=== PATIENT | female | born 1940 | race Caucasian/White ===

== ENCOUNTER → 2017-03-06 | Outpatient (CLI) | payer MEDICARE, BC, OTHER ==
[~2017-03-06] MED LIST: CARB15DR EACHEYE; CITA20TA5 PO; CLOT15CR6 TD; CYCL5.5D EACHEYE; EZET1TAB35 PO
[2017-03-06 13:58] LABS: HEMATOCRIT 46.3 % (34.6-47.8); HEMOGLOBIN 15.5 g/dL (11.7-16.4); WHITE BLOOD COUNT 7.8 x10^3/uL (3.4-10)
[2017-03-06 14:07] LABS: BLOOD UREA NITROGEN 18 mg/dL (7-18)
[2017-03-06 14:11] LABS: ASPARTATE AMINO TRANSFERASE 15 U/L (15-37)
== END | disposition home or self-care (01) ==
LOC: STAR 12:16
PROVIDERS: ATTEND Neurological Surgery
DX: Z01.818 Encounter for other preprocedural examination (principal); I10 Essential (primary) hypertension; R79.1 Abnormal coagulation profile; R82.79 Other abnormal findings on microbiological examination of urine; Z87.891 Personal history of nicotine dependence
CPT/HCPCS: 36415; 71020; 80053; 81001; 85025; 85610; 85730; 87086; 93005

== ENCOUNTER 2017-03-12 05:17 | Inpatient (IN) | payer MEDICARE, BC, OTHER ==
[2017-03-06 13:03] VITALS: BP 154/89
[~2017-03-12] VITALS: Ht 149.9 cm; Wt 66.8 kg
[2017-03-12] MEDS ORDERED: LACTATED RINGERS 1,000 ML IV SCH (06:01)
[2017-03-12] MEDS ORDERED: LIDOCAINE 1%, 2ML SQ PRN (06:30)
[2017-03-12] MEDS ORDERED: BUPIVACAINE/PF 0.5% ONE (06:34)
[2017-03-12] MEDS ORDERED: THROMBIN 5,000 UNIT VIAL TP ONE (06:34)
[2017-03-12] MEDS ORDERED: EPINEPHRINE 1 MG/ML, 1ML ONE (06:35)
[2017-03-12] MEDS ORDERED: BACITRACIN 50,000 UNIT ONE (06:35)
[2017-03-12] MEDS ORDERED: FENTANYL PF 100 MCG/2ML ONE ×2 (06:56)
[2017-03-12] MEDS ORDERED: MIDAZOLAM 1 MG/ML, 2ML ONE (06:56)
[2017-03-12] MEDS ORDERED: PROPOFOL 10 MG/ML, 20ML ONE (06:58)
[2017-03-12] MEDS ORDERED: PROPOFOL 10 MG/ML, 50ML ONE (06:58)
[2017-03-12] MEDS ORDERED: ROCURONIUM 10 MG/ML ONE (06:58)
[2017-03-12] MEDS ORDERED: CEFAZOLIN 1,000 MG ONE (06:58)
[2017-03-12] MEDS ORDERED: ONDANSETRON 2MG/ML, 2ML ONE (06:58)
[2017-03-12] MEDS ORDERED: SUCCINYLCHOLINE 20 MG/ML, 10ML ONE (06:58)
[2017-03-12] MEDS ORDERED: DEXAMETHASONE 4 MG/ML, 1ML ONE (06:58)
[2017-03-12] MEDS ORDERED: LABETALOL 5MG/ML, 20ML IV PRN (08:00)
[2017-03-12] MEDS ORDERED: ONDANSETRON 2MG/ML, 2ML IVPush PRN ×2 (08:00→09:30)
[2017-03-12] MEDS ORDERED: HYDROmorphone 1 MG/ML, 1ML IV PRN (08:00)
[2017-03-12] MEDS ORDERED: MIDAZOLAM 1 MG/ML, 2ML IV PRN (08:00)
[2017-03-12] MEDS ORDERED: PROMETHAZINE 25 MG/ML, 1ML IV PRN (08:00)
[2017-03-12] MEDS ORDERED: MEPERIDINE/PF 25MG/0.5ML IVPush PRN (08:00)
[2017-03-12] MEDS ORDERED: hydrALAzine 20 MG/ML, 1ML IV PRN (08:00)
[2017-03-12] MEDS ORDERED: FENTANYL PF 100 MCG/2ML IV PRN (08:00)
[2017-03-12] MEDS ORDERED: OXYcodone 5 MG/5 ML ORAL.SOL UDC PO PRN (08:00)
[2017-03-12] MEDS ORDERED: DIAZEPAM 5 MG/ML, 2ML IVPush PRN (08:00)
[2017-03-12] MEDS ORDERED: ACETAMINOPHEN 325 MG TABLET PO PRN (08:00)
[2017-03-12] MEDS ORDERED: ALBUTEROL/IPRATROPIUM 2.5MG/0.5MG, 3 ML NPPB PRN (08:00)
[2017-03-12] MEDS ORDERED: DIPHENHYDRAMINE 50 MG/ML, 1ML IVPush PRN (09:30)
[2017-03-12] MEDS ORDERED: PHARMACY MAY ADJ FOR RENAL FX MC PRN (09:30)
[2017-03-12] MEDS ORDERED: HYDROmorphone 1 MG/ML, 1ML IVPush PRN (09:30)
[2017-03-12] MEDS ORDERED: D5%-0.9% NACL+KCL 20MEQ 1,000 ML IV SCH (09:30)
[2017-03-12] MEDS ORDERED: DIPHENHYDRAMINE 50 MG/ML, 1ML IM PRN (09:30)
[2017-03-12] MEDS ORDERED: OXYcodone/APAP 5/325MG TABLET PO PRN (09:30)
[2017-03-12] MEDS ORDERED: CYCLOBENZAPRINE 10 MG TABLET PO PRN (09:30)
[2017-03-12] MEDS ORDERED: ARTIFICIAL TEARS OPHTH SOLN 15ML EACHEYE PRN ×2 (09:30→18:17)
[2017-03-12] MEDS ORDERED: HYDROcodone/APAP 5/325 TABLET PO PRN (09:30)
[2017-03-12] MEDS ORDERED: LABETALOL 5MG/ML, 20ML IVPush PRN (09:30)
[2017-03-12] MEDS ORDERED: MAGNESIUM HYDROXIDE 8%, 30ML UDC PO PRN (09:30)
[2017-03-12] MEDS ORDERED: SENNA/DOCUSATE TABLET PO PRN (09:30)
[2017-03-12] MEDS ORDERED: PROMETHAZINE 25 MG/ML, 1ML IM PRN (09:30)
[2017-03-12] MEDS ORDERED: DIPHENHYDRAMINE 50 MG CAPSULE PO PRN (09:30)
[2017-03-12] MEDS ORDERED: CLINDAMYCIN PMX 600MG/50ML 50 ML IV ONE (09:30)
[2017-03-12] MEDS ORDERED: BISACODYL 10 MG SUPP PR PRN (09:30)
[2017-03-12] MEDS ORDERED: ACETAMINOPHEN 650 MG/20.3 ML UDC ONE (09:32)
[2017-03-12] MEDS ORDERED: OXYcodone 5 MG/5 ML ORAL.SOL UDC ONE (09:32)
[2017-03-12] MEDS ORDERED: hydrALAzine 20 MG/ML, 1ML ONE (10:24)
[2017-03-12] MEDS ORDERED: HYDROmorphone 1 MG/ML, 1ML ONE (10:36)
[2017-03-12 20:01] VITALS: BP 147/78
[2017-03-12] MEDS ORDERED: EZETIMIBE 10 MG TABLET PO SCH ×3 (21:00→21:12)
[2017-03-12] MEDS: CLOTRIM/BETAMETH 1%/0.05% CRM EXT SCH (21:00)
[2017-03-12] MEDS ORDERED: SIMVASTATIN 40 MG TABLET PO SCH (21:00)
[2017-03-12] MEDS: CYCLOSPORINE EACHEYE SCH (21:00)
[2017-03-12] MEDS: SODIUM CHLORIDE FLUSH 10ML SYR IVF SCH (21:16)
[2017-03-12 23:22] VITALS: BP 135/74
[2017-03-12] MEDS: D5%-0.9% NACL+KCL 20MEQ 1,000 ML IV SCH (23:50)
[2017-03-13 02:54] VITALS: BP 147/76
[2017-03-13 07:14] VITALS: BP 155/74
[2017-03-13] MEDS: CYCLOSPORINE EACHEYE SCH (08:40)
[2017-03-13] MEDS: CLOTRIM/BETAMETH 1%/0.05% CRM EXT SCH (08:40)
[2017-03-13] MEDS: SODIUM CHLORIDE FLUSH 10ML SYR IVF SCH (08:41)
[2017-03-13] MEDS: D5%-0.9% NACL+KCL 20MEQ 1,000 ML IV SCH (08:41)
[2017-03-13] MEDS ORDERED: CITALOPRAM 20 MG TABLET PO SCH (09:00)
[2017-03-13] MEDS ORDERED: D5%-0.9% NACL+KCL 20MEQ 1,000 ML IV SCH (09:30)
[2017-03-13 13:05] VITALS: BP 134/75
[2017-03-13 14:26] VITALS: BP 161/82
[2017-03-13] MEDS ORDERED: CYCL5TAB PO (14:48)
[2017-03-13] MEDS ORDERED: HYDR-3240 PO (14:49)
[2017-03-13] MEDS ORDERED: FAMO-79 PO (14:49)
[2017-03-13] MEDS ORDERED: METH4TAB2 PO (14:49)
[2017-03-13] MEDS ORDERED: SIMVASTATIN 40 MG TABLET PO SCH (21:00)
== END 2017-03-13 15:15 | disposition home or self-care (01) | DRG 472 ==
LOC: ORIP 05:17 → 4NOR 17:58 → DCLOUNGE 03-13 15:00
PROVIDERS: ADMIT Neurological Surgery; ATTEND Neurological Surgery
PROC: 0RB30ZZ Excision of Cervical Vertebral Disc, Open Approach (ICD-10-PCS; 2017-03-12)
PROC: 4A1134G Monitoring of Peripheral Nervous Electrical Activity, Intraoperative, Percutaneous Approach (ICD-10-PCS; 2017-03-12)
PROC: 0RG20AJ Fusion of 2 or more Cervical Vertebral Joints with Interbody Fusion Device, Posterior Approach, Anterior Column, Open Approach (ICD-10-PCS; principal; 2017-03-12 07:00)
DX: M48.02 Spinal stenosis, cervical region (principal); M50.023 Cervical disc disorder at C6-C7 level with myelopathy; F03.90 Unspecified dementia, unspecified severity, without behavioral disturbance, psychotic disturbance, mood disturbance, and anxiety; M46.90 Unspecified inflammatory spondylopathy, site unspecified
CPT/HCPCS: 70450; C1713; J0171; J0690; J1100; J1170; J2250; J2405; J2704; J3010; J3490; C1762; C1778; J0330; J3480; J7120